=== PATIENT | female | born 1995 | race Two or more races ===

== ENCOUNTER 2023-10-02 19:13 | Emergency (ER) | payer OTHER, MEDICAID | END 2023-10-02 19:16 | disposition left against medical advice (07) | LOC: ED 19:13 | DX: Z53.21 Procedure and treatment not carried out due to patient leaving prior to being seen by health care provider (principal) | CPT/HCPCS: 99281 ==

== ENCOUNTER 2024-02-06 08:00 | Emergency (ER) | payer MEDICAID, OTHER ==
[2024-02-06 08:24] VITALS: BP 135/85; TEMP 97.5
[2024-02-06] MEDS ORDERED: Kenalog-40 ONE (09:11)
[2024-02-06] MEDS: Kenalog-40 IM ONE (09:13)
[2024-02-06 09:18] VITALS: PULSE 70; O2SAT 97
[2024-02-06 09:18] LABS: Absolute Neutrophil Ct (ANC) 3.99 x10^3/uL (1.56-6.13); BASOPHIL % 0.3 % (0.1-1.2); Basophil (Absolute #) 0.02 x10^3/uL (0.01-0.08); Eosinophil (Absolute #) 0.32 x10^3/uL (0.04-0.36); Hematocrit 37.1 % (34.1-44.9); Hemoglobin 12.4 g/dL (11.2-15.7); IMMATURE GRAN # 0.02 x10^3u/L (0.001-0.031); IMMATURE GRAN % 0.3 % (0.001-0.429); Lymphocyte (Absolute #) 1.69 x10^3/uL (1.18-3.74); Lymphocytes % 26.2 % (19.3-51.7); Mean Corpuscular Hemoglobin 29.7 pg (25.6-32.2); Mean Corpuscular Hgb Concent. 33.4 g/dL (32.2-35.5); Mean Platelet Volume 10.8 fL (9.4-12.3); Monocytes % 6.2 % (4.7-12.5); Platelet Count 159 x10^3/uL (182-369); Red Blood Count 4.17 x10^6/uL (3.93-5.22); Red Cell Distribution Width 12.1 % (11.7-14.4); White Blood Count 6.4 x10^3/uL (3.98-10.04)
--- NOTE | 2024-02-06 09:20 | ERPHSYRPT ---
- History of Present Illness Time Seen by Provider: 02/06/24 08:28 Source: patient Exam Limitations: no limitations Patient Subjective Stated Complaint: pt here for rash and bruising for a week now, co itching and some pain where bruising is. no new meds Triage Nursing Assessment: pt alert, walked in, resp easy,. skin warm and dry, has sparadic rash to wrist, trunk and legs, with bruising noted to right thigh Physician History: 28 years old female presented in the ER with complaints of rash with itching and burning sensation started in the lower extremities and gradually extending to the trunk and forearms. Patient reports some bruising at the area of rash. Denies any known new allergen exposure. No difficulty breathing. Allergies/Adverse Reactions: No Known Drug Allergies Allergy (Verified 02/06/24 08:14) Hx Tetanus, Diphtheria Vaccination/Date Given: No Hx Influenza Vaccination/Date Given: No Hx Pneumococcal Vaccination/Date Given: No Immunizations Up to Date: Yes Travel Risk - International Travel Have you traveled outside of the country in past 3 weeks: No - Emerging Infectious Disease Are you exhibiting symptoms associated with any current EIDs: No - Review of Systems Constitutional: No Symptoms Ears, Nose, & Throat: No Symptoms Respiratory: No Symptoms Cardiac: No Symptoms Abdominal/Gastrointestinal: No Symptoms Musculoskeletal: No Symptoms Skin: Rash Neurological: No Symptoms Endocrine: No Symptoms Hematologic/Lymphatic: No Symptoms - Past Medical History Pertinent Past Medical History: Yes Neurological History: No Pertinent History ENT History: No Pertinent History Cardiac History: No Pertinent History Respiratory History: Asthma Endocrine Medical History: No Pertinent History Musculoskeletal History: No Pertinent History GI Medical History: No Pertinent History History: No Pertinent History Psycho-Social History: Anxiety, Depression, Other Female Reproductive Disorders: No Pertinent History - Past Surgical History Past Surgical History: Yes Neuro Surgical History: No Pertinent History Cardiac: No Pertinent History Respiratory: No Pertinent History Gastrointestinal: No Pertinent History Genitourinary: No Pertinent History Musculoskeletal: No Pertinent History Female Surgical History: No Pertinent History Other Surgical History: TONSILS, ADENOIDS. DEVIATED SEPTUM Significant Family History: no pertinent family hx - Female History Hx Last Menstrual Period: dec Hx Now: No - Social History Smoking Status: Current every day smoker Exposure to second hand smoke: Yes Alcohol Use: Socially Drug Use: marijuana Patient Lives Alone: No - Social Determinants of Health Will the patient participate in the screening: Declined to provide - Nursing Vital Signs Nursing Vital Signs: Initial Vital Signs Temperature 97.5 F 02/06/24 08:23 Pulse Rate 63 02/06/24 08:23 Respiratory Rate 18 02/06/24 08:23 Blood Pressure 135/85 02/06/24 08:23 O2 Sat by Pulse Oximetry 98 02/06/24 08:23 Pain Scale Pain Intensity 2 - Physical Exam General Appearance: no apparent distress, alert Eye Exam: PERRL/EOMI Ears, Nose, Throat Exam: normal ENT inspection Neck Exam: normal inspection, full range of motion Respiratory Exam: normal breath sounds, lungs clear Cardiovascular Exam: regular rate/rhythm, normal heart sounds Extremity Exam: normal inspection, normal range of motion Neurologic Exam: alert, oriented x 3, cooperative Skin Exam: normal color, rash (Maculopapular rash, blanchable on lower extremiti es with scattered bruising especially on the right posterior thigh area. No tenderness. Increased temperature) SpO2 Interpretation: normal SpO2: 97 O2 Delivery: Room Air Ordered Tests: Active Orders 24 hr Category Date Time Status CBC W DIFF Stat Lab 02/06/24 09:15 Completed PROTIME WITH INR Stat Lab 02/06/24 09:15 Completed PTT Stat Lab 02/06/24 09:15 Completed Medication Summary Discontinued Medications Generic Name Dose Route Start Last Admin Trade Name Abram PRN Reason Stop Dose Admin Triamcinolone Acetonide 60 mg 02/06/24 08:56 02/06/24 09:13 Triamcinolone Acetonide 40 Mg/Ml Ml IM 02/06/24 08:57 60 mg 1XONLY ONE Administration Triamcinolone Acetonide Confirm 02/06/24 09:11 Triamcinolone Acetonide 40 Mg/Ml Ml Administered 02/06/24 09:12 Dose 80 mg .ROUTE .STK-MED ONE Lab/Rad Data: Laboratory Result Diagrams 02/06/24 09:15 Laboratory Results 02/06/24 02/06/24 Range/Units 09:15 09:15 WBC 6.4 (3.98-10.04) x10^3/uL RBC 4.17 (3.93-5.22) x10^6/uL Hgb 12.4 (11.2-15.7) g/dL Hct 37.1 (34.1-44.9) % MCV 89.0 (79.4-94.8) fL MCH 29.7 (25.6-32.2) pg MCHC 33.4 (32.2-35.5) g/dL RDW 12.1 (11.7-14.4) % Plt Count 159 L (182-369) x10^3/uL MPV 10.8 (9.4-12.3) fL Gran % 62.0 (34.0-71.1) % Immature Gran % (Auto) 0.3 (0.001-0.429) % Nucleat RBC Rel Count 0.0 (0.00-0.2) % Eos # (Auto) 0.32 (0.04-0.36) x10^3/uL Immature Gran # (Auto) 0.02 (0.001-0.031) x10^3u/L Absolute Lymphs (auto) 1.69 (1.18-3.74) x10^3/uL Absolute Monos (auto) 0.40 (0.24-0.86) x10^3/uL Absolute Nucleated RBC 0.00 (0.00-0.012) x10^3u/L Lymphocytes % 26.2 (19.3-51.7) % Monocytes % 6.2 (4.7-12.5) % Eosinophils % 5.0 (0.7-5.8) % Basophils % 0.3 (0.1-1.2) % Absolute Granulocytes 3.99 (1.56-6.13) x10^3/uL Basophils # 0.02 (0.01-0.08) x10^3/uL PT 10.3 (9.4-12.5) SECONDS INR 0.94 (0.8-3.0) APTT 27.9 (25.1-36.5) SECONDS - Progress Progress: unchanged Progress Note: 02/06/24 09:50 28 years old is evaluated in the ER for rash on extremities with some bruising. Patient is normal platelet count, normal hemoglobin, normal PT APTT. She is given a shot of steroid and will continue with topical steroids to go home. Outpatient follow-up recommended. Discussed signs symptoms of worsening needing return to ER which seemed understanding. Counseled pt/family regarding: lab results, diagnosis, need for follow-up Medical Desision Making - Diagnostic Testing Diagnostic test were ordered, analyzed, and reviewed by me: Yes - Risk of complications The pt has a mod risk of morbidity or mortality based on: Need for prescription drug management - Departure Departure Disposition: Home Clinical Impression: Allergic dermatitis Condition: Stable Critical Care Time: No Referrals: DOCTOR,NO FAMILY [Primary Care Provider] - Follow up with PCP 1 day Instructions: Skin Rash ED Additional Instructions: Follow-up with primary care for reevaluation. Take Benadryl and steroid topically as recommended. Return to ER for worsening of rash. Prescriptions: Betamethasone/Propylene Glyc [Betamethasone Dp Oct 0.05% Crm] 15 gm TP TID 7 Days #1 tu
[2024-02-06 09:32] LABS: INR 0.94 (0.8-3.0); PROTIME 10.3 SECONDS (9.4-12.5); PTT 27.9 SECONDS (25.1-36.5)
[2024-02-06 10:02] VITALS: RESP 16
== END 2024-02-06 10:02 | disposition home or self-care (01) ==
LOC: ED 08:00
DX: L23.9 Allergic contact dermatitis, unspecified cause (principal)
CPT/HCPCS: 36415; 85025; 85610; 85730; 96372; 99283; J3301